=== PATIENT | female | born 1945 | race Caucasian/White ===

== ENCOUNTER 2017-08-14 12:07 | Outpatient (CLI) | payer MEDICARE, BC ==
[2017-08-14 13:16] LABS: Hemoglobin 13.3 g/dL (12.0-16.0); Mean Corpuscular HGB CONC 33.5 g/dL (32.0-36.0); Mean Corpuscular Hemoglobin 29.6 pg (27.0-31.0); Mean Corpuscular Volume 88.4 fl (81.0-99.0); Mean Platelet Volume 7.3 fL (7.4-10.4); Platelet Count 225 thou/uL (130-400); RBC Distribution Width 14.5 % (11.5-14.5); Red Blood Cell (RBC) Count 4.51 mill/uL (4.20-5.40); White Blood Cell (WBC) Count 9.5 thou/uL (4.8-10.8)
[2017-08-14 13:41] LABS: Anion Gap 13 mmol/L (10-20); BUN (Urea Nitrogen) 19 mg/dL (9.8-20.1); Calc. Creatinine Clearance 0 mL/min (70-130); Calcium 9.8 mg/dL (7.8-10.44); Carbon Dioxide 28 mmol/L (23-31); Chloride 101 mmol/L (98-107); Estimated GFR-MDRD 72; Glucose 195 mg/dL (80-115); Potassium 4.6 mmol/L (3.5-5.1); Sodium 137 mmol/L (136-145)
--- NOTE | 2017-08-14 21:37 | EKG ---
Test Reason : Blood Pressure : / mmHG Vent. Rate : 084 BPM Atrial Rate : 084 BPM P-R Int : 160 ms QRS Dur : 094 ms QT Int : 398 ms P-R-T Axes : 082 -34 088 degrees QTc Int : 470 ms Sinus rhythm with Premature atrial complexes Left axis deviation Low voltage QRS Cannot rule out Anterior infarct , age undetermined Abnormal ECG No previous ECGs available Confirmed by Timoteo MILLS ([id number]) on 08/14/2017 9:37:18 PM Referred By: ZAYRA Confirmed By:Timoteo MILLS
== END 2017-08-14 12:08 | disposition home or self-care (01) ==
LOC: LABBT 12:07
PROVIDERS: ATTEND Thoracic Surgery (Cardiothoracic Vascular Surgery)
DX: Z01.818 Encounter for other preprocedural examination (principal); I65.22 Occlusion and stenosis of left carotid artery
CPT/HCPCS: 80048; 85027; 93005; 93010

== ENCOUNTER 2017-08-14 13:00 | Inpatient (IN) | payer MEDICARE, BC ==
[2017-08-15] MEDS ORDERED: CEFAZOLIN/Water 2 GM/20 ML SYRINGE ONE (06:11)
[2017-08-15] MEDS ORDERED: Protamine Sulfate 50 MG/5 ML VIAL ONE (06:33)
[2017-08-15] MEDS ORDERED: Heparin 5,000 UNITS/ML VIAL ONE (06:33)
[2017-08-15] MEDS ORDERED: Bupivacaine/Epinephrine 0.25% 30 ML VIAL ONE (06:58)
[2017-08-15] MEDS ORDERED: Fentanyl 100 MCG/2 ML VIAL ONE ×2 (07:07→09:45)
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
[2017-08-15] MEDS ORDERED: Ondansetron HCl/PF 4 MG/2 ML Vial IVP PRN ×3 (09:22→13:16)
[2017-08-15] MEDS ORDERED: Promethazine HCl 25 MG/ML VIAL SLOW IVP PRN (09:22)
[2017-08-15] MEDS ORDERED: Promethazine HCl 25 MG/ML VIAL IM PRN (09:22)
--- NOTE | 2017-08-15 09:42 | OP ---
PREOPERATIVE DIAGNOSIS: Bilateral critical carotid stenosis. PROCEDURE PERFORMED: Left carotid endarterectomy with bovine patch. SURGEON: Dr. Moreno. ANESTHESIA: General. ESTIMATED BLOOD LOSS: Less than 100. PROCEDURE IN DETAIL: After adequate anesthesia had been obtained, the patient was prepped and draped . Ultrasound had been used to isolate the carotid bulb region and an incision was then made, carried down through the subcutaneous tissue. Small facial vein was ligated, clipped and divided. Hypoglos vera and vagus nerves were identified and avoided. Following control of internal, external, and commo n carotid arteries, 7500 units of heparin were given and ACT was checked. Following this, clamps wer e applied, arteriotomy performed, and a 10-[place] shunt was placed. Endarterectomy was performed wit h nice tapering distally. Following this, the arteriotomy was thoroughly irrigated and closed with a running 6-0 Prolene suture and a bovine pericardial patch. Prior to completing the suture line, the shunt was removed, vessels back flushed and forward flushed and flow restored up the external and th en internal carotid artery. Protamine was given to partially reverse the heparin. After obtaining g ood hemostasis, the wound was irrigated and closed in layers and the patient is to be taken to the re covery room in guarded condition.
[2017-08-15] MEDS ORDERED: Promethazine HCl 25 MG/ML VIAL IM/IV PRN (11:01)
[2017-08-15] MEDS ORDERED: Non-Formulary Medication 1 EACH PO PRN (11:01)
[2017-08-15] MEDS ORDERED: Phenylephrine 10 MG/NS 250 ML 250 ML IVPB PRN (13:16)
[2017-08-15] MEDS ORDERED: Sodium Chloride 0.9% 1,000 ML IV SCH (13:16)
[2017-08-15] MEDS ORDERED: hydrALAZINE 20 MG/ML VIAL SLOW IVP PRN (13:16)
[2017-08-15] MEDS ORDERED: Acetaminophen 325 MG TAB PO PRN (13:16)
[2017-08-15] MEDS ORDERED: HYDROcodone/Acetaminophen 5/325 mg Tablet PO PRN ×2 (13:16)
[2017-08-15] MEDS ORDERED: Nitroglycerin 50 MG/250 ML BOT 250 ML IVPB PRN (13:16)
[2017-08-15] MEDS ORDERED: Fentanyl 100 MCG/2 ML VIAL SLOW IVP PRN (13:16)
[2017-08-15] MEDS ORDERED: Succinylcholine Chloride 20 MG/ML 10 ml SYRINGE FS ONE (14:42)
[2017-08-15] MEDS ORDERED: Ondansetron HCl/PF 4 MG/2 ML Vial ONE (14:42)
[2017-08-15] MEDS ORDERED: PHENYLEPHRINE-NS 100 MCG/ML 10 ML SYRINGE ONE (14:42)
[2017-08-15] MEDS ORDERED: Heparin 10,000 UNITS/ 10 ML VIAL ONE (14:42)
[2017-08-15] MEDS ORDERED: Glycopyrrolate 0.2 MG/ML 5 ML SYRINGE ONE (14:42)
[2017-08-15] MEDS ORDERED: Propofol 200 MG/20 ML VIAL ONE (14:42)
[2017-08-15] MEDS ORDERED: Lidocaine 1% PF 5 ML VIAL ONE (14:42)
[2017-08-15] MEDS ORDERED: Dexamethasone 20 MG/5 ML VIAL ONE (14:42)
[2017-08-15 14:44] VITALS: BMI 28.9
[2017-08-15] MEDS: CEFAZOLIN/Water 2 GM/20 ML SYRINGE SLOW IVP SCH ×2 (14:54→22:28)
[2017-08-15] MEDS: Insulin Regular 300 UNITS/3 ML VIAL SC PRN ×2 (17:19→20:03)
[2017-08-15] MEDS: metFORMIN 500 MG TAB PO SCH (17:19)
[2017-08-15] MEDS ORDERED: Insulin Detemir 100 UNITS/ML 55 UNITS in Pre-Filled Syringe 1 EACH SC SCH (21:00)
[2017-08-15] MEDS ORDERED: Atorvastatin Calcium 20 MG TAB PO SCH (21:00)
[2017-08-15] MEDS ORDERED: INSULIN GLARGINE HUM REC ANLOG 55 UNIT SQ SCH (21:00)
[2017-08-16 01:11] VITALS: TEMP 98.6
[2017-08-16] MEDS: CEFAZOLIN/Water 2 GM/20 ML SYRINGE SLOW IVP SCH (06:05)
--- NOTE | 2017-08-16 06:19 | DIS ---
HOSPITAL COURSE: The patient was admitted on 08/15/2017 where she underwent elective left carotid en darterectomy. Her postoperative course was uneventful. She will be discharged home on her admitting medications plus tramadol for pain. Discharge and follow up instructions have been given. The francois ent will follow up with me in 2-3 weeks.
[2017-08-16] MEDS: Insulin Regular 300 UNITS/3 ML VIAL SC PRN (06:28)
[2017-08-16] MEDS: metFORMIN 500 MG TAB PO SCH (08:01)
[2017-08-16 08:06] VITALS: BP 130/59
== END 2017-08-16 08:37 | disposition home or self-care (01) | DRG 39 ==
LOC: SJJU 08-15 05:33 → CCU 08-15 12:05
PROVIDERS: ADMIT Thoracic Surgery (Cardiothoracic Vascular Surgery); ATTEND Thoracic Surgery (Cardiothoracic Vascular Surgery)
PROC: 03CJ0ZZ Extirpation of Matter from Left Common Carotid Artery, Open Approach (ICD-10-PCS; principal; 2017-08-15)
PROC: 03UJ0JZ Supplement Left Common Carotid Artery with Synthetic Substitute, Open Approach (ICD-10-PCS; 2017-08-15)
DX: I65.23 Occlusion and stenosis of bilateral carotid arteries (principal); E11.9 Type 2 diabetes mellitus without complications; I25.10 Atherosclerotic heart disease of native coronary artery without angina pectoris; Z79.4 Long term (current) use of insulin; E78.2 Mixed hyperlipidemia
CPT/HCPCS: 36416; 80048; 85027; 93005; 93010; J0360; J1100; J1642; J1644; J1815; J2001; J2405; J2704; J2720; J3010

== ENCOUNTER 2017-09-25 05:52 | Inpatient (IN) | payer MEDICARE, BC ==
[2017-09-22 15:34] VITALS: BMI 29.8
[2017-09-25] MEDS ORDERED: CEFAZOLIN/Water 2 GM/20 ML SYRINGE ONE (06:26)
[2017-09-25] MEDS ORDERED: Vecuronium 10 MG VIAL ONE ×2 (06:30→12:00)
[2017-09-25] MEDS ORDERED: Midazolam HCl 2 mg/2 ml Vial ONE (06:30)
[2017-09-25] MEDS ORDERED: Fentanyl 100 MCG/2 ML VIAL ONE ×2 (06:30→09:24)
[2017-09-25 06:34] LABS: #Eosinphils 0.1 thou/uL (0.0-0.7); #Lymphocytes 2.2 thou/uL (1.20-3.40); #Monocytes 0.6 thou/uL (0.11-0.59); #Neutrophils 4.1 thou/uL (1.40-6.50); %Basophils 0.7 % (0.0-1.0); %Eosinophils 2.1 % (0.0-10.0); %Lymphocytes 30.7 % (21.0-51.0); %Monocytes 8.3 % (0.0-10.0); %Neutrophils 58.2 % (42.0-75.0); Mean Corpuscular HGB CONC 33.6 g/dL (32.0-36.0); Mean Corpuscular Hemoglobin 29.7 pg (27.0-31.0); Mean Corpuscular Volume 88.5 fl (81.0-99.0); Mean Platelet Volume 7.3 fL (7.4-10.4); Platelet Count 196 thou/uL (130-400); RBC Distribution Width 14.8 % (11.5-14.5); Red Blood Cell (RBC) Count 4.71 mill/uL (4.20-5.40); White Blood Cell (WBC) Count 7.1 thou/uL (4.8-10.8)
[2017-09-25] MEDS ORDERED: Protamine Sulfate 50 MG/5 ML VIAL ONE (06:36)
[2017-09-25] MEDS ORDERED: Heparin 5,000 UNITS/ML VIAL ONE (06:36)
[2017-09-25 06:53] LABS: Anion Gap 15 mmol/L (10-20); BUN (Urea Nitrogen) 16 mg/dL (9.8-20.1); Calc. Creatinine Clearance 89 mL/min (70-130); Calcium 9.8 mg/dL (7.8-10.44); Carbon Dioxide 27 mmol/L (23-31); Chloride 101 mmol/L (98-107); Estimated GFR-MDRD 73; Glucose 229 mg/dL (80-115); Potassium 4.3 mmol/L (3.5-5.1); Sodium 139 mmol/L (136-145)
[2017-09-25] MEDS ORDERED: Ondansetron HCl/PF 4 MG/2 ML Vial IVP PRN ×2 (08:59→12:44)
[2017-09-25] MEDS ORDERED: hydrALAZINE 20 MG/ML VIAL ONE (09:29)
[2017-09-25] MEDS ORDERED: Promethazine HCl 25 MG/ML VIAL ONE (09:34)
--- NOTE | 2017-09-25 11:04 | OP ---
DATE OF PROCEDURE: 09/25/2017 PREOPERATIVE DIAGNOSIS: Severe right carotid stenosis. POSTOPERATIVE DAIGNOSIS: Severe right carotid stenosis. PROCEDURE: Right carotid endarterectomy with bovine patch angioplasty. SURGEON: Jayjay Moreno M.D. ANESTHESIA: General. ESTIMATED BLOOD LOSS: Minimal. PROCEDURE IN DETAIL: After adequate anesthesia had been obtained, shoulder roll was placed, head tur stacy to the left slightly and ultrasound used to guide future incision. Incision was then made after prepping and draping. The vessel was deep in the neck. Following isolation of the common internal a nd external carotid arteries, the patient was given 7500 units of heparin. Hypoglossal nerve was duy ntified and avoided. Vagus nerve was not visualized. Clamps were applied, arteriotomy performed, an d a 12-Urdu shunt was placed with a reasonably good back bleeding. Following this, endarterectomy was performed with nice tapering distally. The area was thoroughly irrigated and any loose debris re moved. Following this, a bovine patch was used to close the arteriotomy with a running 6-0 Prolene s uture. Prior to completing the suture line, the shunt was removed, vessels back flushed and forward flushed and flow restored up the external and then internal carotid artery. Heparin was partially re versed with protamine and after obtaining good hemostasis, the wound was irrigated, closed in layers. The patient is to be taken to the recovery room in guarded condition.
[2017-09-25] MEDS ORDERED: PHENYLEPHRINE-NS 100 MCG/ML 10 ML SYRINGE ONE (12:00)
[2017-09-25] MEDS ORDERED: Heparin 10,000 UNITS/ 10 ML VIAL ONE (12:00)
[2017-09-25] MEDS ORDERED: Ketorolac Tromethamine 30 MG/ML VIAL ONE (12:00)
[2017-09-25] MEDS ORDERED: Lidocaine 1% PF 5 ML VIAL ONE (12:00)
[2017-09-25] MEDS ORDERED: PROPOFOL 200 MG/20 ML VIAL ONE (12:00)
[2017-09-25] MEDS ORDERED: Glycopyrrolate 0.2 MG/ML 5 ML SYRINGE ONE (12:00)
[2017-09-25] MEDS ORDERED: Dextrose 5% in Water 1,000 ML IV PRN (12:44)
[2017-09-25] MEDS ORDERED: Acetaminophen 325 MG TAB PO PRN (12:44)
[2017-09-25] MEDS ORDERED: Fentanyl 100 MCG/2 ML VIAL SLOW IVP PRN ×2 (12:44)
[2017-09-25] MEDS ORDERED: Promethazine HCl 25 MG/ML VIAL IM PRN (12:44)
[2017-09-25] MEDS ORDERED: hydrALAZINE 20 MG/ML VIAL SLOW IVP PRN (12:44)
[2017-09-25] MEDS ORDERED: Dextrose 50% Abboject 50 ML SYRINGE SLOW IVP PRN (12:44)
[2017-09-25] MEDS ORDERED: Sodium Chloride 0.9% 1,000 ML IV SCH (12:44)
[2017-09-25] MEDS ORDERED: HYDROcodone/Acetaminophen 5/325 mg Tablet PO PRN ×2 (12:44)
[2017-09-25] MEDS: CEFAZOLIN/Water 2 GM/20 ML SYRINGE SLOW IVP SCH ×2 (14:59→21:30)
[2017-09-25] MEDS: metFORMIN 500 MG TAB PO SCH (15:55)
[2017-09-25] MEDS: Insulin Regular 300 UNITS/3 ML VIAL SC PRN ×2 (15:55→21:27)
[2017-09-25] MEDS ORDERED: Insulin Detemir 100 UNITS/ML 55 UNITS in Pre-Filled Syringe 1 EACH SC SCH (21:00)
[2017-09-25] MEDS ORDERED: INSULIN GLARGINE HUM REC ANLOG 55 UNIT SQ SCH (21:00)
[2017-09-26] MEDS: CEFAZOLIN/Water 2 GM/20 ML SYRINGE SLOW IVP SCH (06:38)
--- NOTE | 2017-09-26 06:42 | DIS ---
HOSPITAL COURSE: The patient was admitted for an elective right carotid endarterectomy. This was pe rformed uneventfully. Her postoperative course was significant only for some nausea post pain medica tion. Her neck swelling is minimal and her neurologic exam is baseline. She will be discharged home today to resume home medications. Discharge and follow up instructions have been given.
[2017-09-26] MEDS: Insulin Regular 300 UNITS/3 ML VIAL SC PRN (06:49)
[2017-09-26] MEDS: metFORMIN 500 MG TAB PO SCH (08:17)
[2017-09-26 08:18] VITALS: BP 154/79
[2017-09-26 08:38] VITALS: TEMP 98.5
== END 2017-09-26 08:53 | disposition home or self-care (01) | DRG 39 ==
LOC: SURG A 05:52 → CCU 11:55
PROVIDERS: ADMIT Thoracic Surgery (Cardiothoracic Vascular Surgery); ATTEND Thoracic Surgery (Cardiothoracic Vascular Surgery)
PROC: 03CK0ZZ Extirpation of Matter from Right Internal Carotid Artery, Open Approach (ICD-10-PCS; principal; 2017-09-25)
PROC: 03UK0KZ Supplement Right Internal Carotid Artery with Nonautologous Tissue Substitute, Open Approach (ICD-10-PCS; 2017-09-25)
DX: I65.21 Occlusion and stenosis of right carotid artery (principal); E78.5 Hyperlipidemia, unspecified; I10 Essential (primary) hypertension; E11.9 Type 2 diabetes mellitus without complications; E66.9 Obesity, unspecified; Z68.29 Body mass index [BMI] 29.0-29.9, adult
CPT/HCPCS: 36415; 36416; 80048; 85025; 96374; A4216; J0360; J1642; J1644; J1815; J1885; J2001; J2250; J2405; J2550; J2704; J2720; J3010